=== PATIENT | female | born 1960 | race Caucasian/White ===

== ENCOUNTER 2018-05-15 08:54 | Outpatient (CLI) | payer BC | END 2018-05-15 08:55 | disposition home or self-care (01) | LOC: BICMAMMO 08:54 | PROVIDERS: ATTEND Internal Medicine | DX: Z12.31 Encounter for screening mammogram for malignant neoplasm of breast (principal) | CPT/HCPCS: 77063; 77067 ==

== ENCOUNTER 2018-06-15 17:25 | Inpatient (IN) | payer BC ==
[2018-06-15] MEDS ORDERED: Dexamethasone 10 MG/ML VIAL ONE (18:13)
[2018-06-15] MEDS ORDERED: Piperacillin/Tazobactam 4.5 GM VIAL ONE (18:13)
[2018-06-15] MEDS ORDERED: Acyclovir Sodium 900 MG in Sodium Chloride 0.9% 100 ML IVPB SCH (18:15)
[2018-06-15 18:16] LABS: #Lymphocytes 0.6 thou/uL (1.20-3.40); #Monocytes 0.5 thou/uL (0.11-0.59); #Neutrophils 10.8 thou/uL (1.40-6.50); %Basophils 0.3 % (0.0-1.0); %Eosinophils 0.2 % (0.0-10.0); %Monocytes 4.2 % (0.0-10.0); %Neutrophils 90.3 % (42.0-75.0); Hemoglobin 14.8 g/dL (12.0-16.0); Mean Corpuscular HGB CONC 32.8 g/dL (32.0-36.0); Mean Corpuscular Hemoglobin 31.7 pg (27.0-31.0); Mean Corpuscular Volume 96.6 fL (78.0-98.0); Mean Platelet Volume 7.9 fL (7.4-10.4); Platelet Count 207 thou/uL (130-400); RBC Distribution Width 12.3 % (11.5-14.5); Red Blood Cell (RBC) Count 4.65 mill/uL (4.20-5.40)
--- NOTE | 2018-06-15 18:31 | RAD ---
AP VIEW CHEST: 06/15/2018 HISTORY: Fever. COMPARISON: 02/23/2014 FINDINGS: AP view chest demonstrates suboptimal inspiratory effort. Areas of patchy density seen in the left costophrenic angle. This may represent areas of left lower lobe pneumonia. Correlate with PA and lateral views of the chest to better evaluate the left lung ba se. IMPRESSION: Area of pneumonia versus artifact in the left lung base. Correlate with Vinod posterior-anterior views of the chest. POS: [facility]
--- NOTE | 2018-06-15 18:33 | CT ---
CT BRAIN: HISTORY: Altered mental status. TECHNIQUE: Noncontrast enhanced CT images of the brain obtained. FINDINGS: The brain is unremarkable. No evidence of intracranial masses, hemorrhages, strokes, or contusions s een. Ventricles are of normal size. IMPRESSION: Normal CT brain. POS: [facility]
[2018-06-15 18:37] LABS: ALT (SGPT) 13 U/L (8-55); AST (SGOT) 31 U/L (5-34); Albumin 3.9 g/dL (3.5-5.0); Alkaline Phosphatase 76 U/L (40-150); Anion Gap 16 mmol/L (10-20); BUN (Urea Nitrogen) 14 mg/dL (9.8-20.1); Bilirubin, Total 0.3 mg/dL (0.2-1.2); CK (CPK) 74 U/L (29-168); Calc. Creatinine Clearance 0 mL/min (70-130); Calcium 8.9 mg/dL (7.8-10.44); Carbon Dioxide 21 mmol/L (22-29); Chloride 101 mmol/L (98-107); Estimated GFR-MDRD 79; Globulin 3.4 g/dL (2.4-3.5); Glucose 120 mg/dL (70-105); Lipase 36 U/L (8-78); Potassium 3.8 mmol/L (3.5-5.1); Protein, Total 7.3 g/dL (6.0-8.3); Sodium 134 mmol/L (136-145)
[2018-06-15] MEDS ORDERED: Oseltamivir 75 MG CAP PO SCH (18:45)
[2018-06-15 18:47] LABS: Acetaminophen Less than 6.0 mcg/mL (10.0-30.0); Alcohol Less than 10 mg/dL (Less than 10); Salicylate Less than 8.0 mg/dL (15.0-30.0)
[2018-06-15] MEDS ORDERED: Lorazepam 2 MG/ML VIAL ONE (19:09)
[2018-06-15] MEDS ORDERED: Lidocaine 1% PF 5 ML VIAL ONE (19:16)
[2018-06-15 19:52] LABS: Color Of CSF Supernatant COLORLESS (Colorless); Tube # 2; Unspun CSF Color COLORLESS (Colorless)
[2018-06-15 20:04] LABS: CSF, Glucose 73 mg/dl (40-70); CSF, Protein 28 mg/dL (15-40)
[2018-06-15 20:25] LABS: CSF Source CSF; Clarity Clear (Clear); RBC Count - Manual 19 /cumm (None Seen); Tube # 1; WBC/NonHematics Count - Manual 1 /cumm (0-5)
[2018-06-15 20:34] LABS: CSF Source CSF; Clarity Hazy (Clear); RBC Count - Manual 2100 /cumm (None Seen); Tube # 4; WBC/NonHematics Count - Manual 4 /cumm (0-5)
[2018-06-15] MEDS ORDERED: Acetaminophen 500 MG TAB ONE (20:47)
[2018-06-16 00:06] VITALS: BMI 26.1
[2018-06-16] MEDS: Sodium Chloride 0.9% 1,000 ML IV SCH ×3 (01:21→17:33)
[2018-06-16] MEDS: Acetaminophen/Codeine 30-300mg Tablet PO PRN (01:22)
--- NOTE | 2018-06-16 02:55 | HP ---
PRIMARY CARE DOCTOR: Dr. Jignesh Simmons. CODE STATUS: Full code. TIME OF EVALUATION: 9:40 p.m. CHIEF COMPLAINT: Fever, change in mental status, and fatigue. HISTORY OF PRESENT ILLNESS: 58-year-old female patient with past medical cardiac history of heart disease, mitral valve prolapse, Landon's palsy, came to the hospital after having an episode of fatigue, associated with headache, photophobia, hypotension, nausea, vomiting. Symptoms have been present since Friday and gradually worsened, not getting better. As per , the patient has been only willing to sleep at home. The patient saw Dr. Hutson and the patient had a positive flu test and she was sent here. Has no clear triggers, symptoms are severe. No alleviating factors. The patient seems lethargic with a slow mentation. REVIEW OF SYSTEMS: CONSTITUTIONAL: The patient denies fever, chills, generalized weakness. RESPIRATORY: No cough, sputum production, shortness of breath. CARDIOVASCULAR: No chest pain or palpitations. GASTROINTESTINAL: The patient has nausea, vomiting. No diarrhea or abdominal pain. SWITCH FOREMAN: The patient is lethargic, somnolent. She has headache, photophobia. GENITOURINARY: No burning on urination. EXTREMITIES: No leg swelling. All other systems were reviewed and negative except for the findings mentioned above. PAST MEDICAL HISTORY: As mentioned in the HPI. SURGICAL HISTORY: Hysterectomy. SOCIAL HISTORY: No alcohol, no drugs. No smoking history. FAMILY HISTORY: Reviewed and noncontributory to current presentation. ALLERGIES: NO KNOWN DRUG ALLERGIES REPORTED. MEDICATIONS: None. PHYSICAL EXAMINATION: VITAL SIGNS: On presentation, blood pressure 112/73 with heart rate 116, respiratory rate was 12, temperature 103, pain was 8/10, and oxygen saturation was 91% on room air. GENERAL APPEARANCE: The patient is alert, but lethargic, oriented, but with slow mentation. No acute distress. HEENT: Eyes, normal conjunctiva. Moist oral mucosa. Anicteric. No JVD. RESPIRATORY: Bilateral air entry. No rales. No wheezing. Symmetric expansion. CARDIOVASCULAR: Normal rate, regular rhythm. No murmurs, no gallops. No edema. ABDOMEN: Soft. Normal bowel sounds. MUSCULOSKELETAL: Baseline range of motion. No sternal tenderness. SKIN: Warm, intact. No pallor. No rash. No redness. Peripheral pulses are present. Capillary refill seems to be intact. NEUROLOGIC: The patient has some photophobia. No focal weakness. Baseline speech. Slow mentation. Cranial nerves seem to be intact. PSYCHIATRIC: The patient is in good mood. No anxiety. Slow mentation. Suboptimal judgment. DIAGNOSTIC STUDIES: EKG was reviewed. The patient has sinus tachycardia at a rate of 109 with WA 118, QRS 90, QT corrected 412. Chest x-ray was reviewed. The patient had pneumonia versus artifact in the left lung base. Brain CT was done and showed normal brain CT. LABORATORY DATA: Labs were reviewed. White count 12, hemoglobin 14.8, MCV 96.6 , platelet count 207, neutrophil 90.3, lymphocytes 5. Chemistry; sodium 134, potassium 3.8, chloride 101, carbon dioxide 21, anion gap 16, BUN 14, creatinine 0.76, GFR 79, glucose 120, lactic acid 0.9, calcium is 8.9. LFTs were normal. Troponin was normal. TSH 0.14. CSF fluid was obtained. The patient had rbc's 19, cells were normal. Glucose was 73. Toxicology was negative. ASSESSMENT AND PLAN: The patient will be placed in the hospital with following medical problems: 1. Possible acute encephalitis/meningitis due to a viral infection. At this point, it is difficult to rule out any bacterial infection. The patient is being covered with broad-spectrum antibiotics and also antiviral, we will consult Dr. Mcadams for any further recommendations. Cultures been sent. Expect to have final cultures from CSF to make any change in medications unless otherwise specified by Dr. Mcadams. 2. Acute encephalopathy, seems to be of infectious etiology. The patient has been with fever and septic, treatment as above. 3. Sepsis. The patient is tachycardic and febrile. Possible source is SWITCH FOREMAN. We will continue with medication started above. 4. Borderline hypotension. Patient usually has low blood pressure in the 90s at home, unclear if this is related to underlying sepsis. We will monitor in IMCU, will hydrate and will adjust treatment depending on patient's clinical progress. 5. Hyperglycemia. Glucose 120, unclear etiology. No history of diabetes. Might be due to acute distress or sepsis. We will monitor. No need for any acute intervention at this point. 6. Hyponatremia, sodium 134, this is mild. No need for any acute intervention at this point. 7. Deep venous thrombosis prophylaxis. Job ID: [id number] [email or web address]
[2018-06-16] MEDS ORDERED: cefTRIAXone\\ROCEPHIN 2 GM in Sodium Chloride 0.9% 100 ML IVPB SCH (03:15)
[2018-06-16] MEDS ORDERED: Sodium Chloride 0.9% 1,000 ML IV SCH (03:30)
[2018-06-16 03:54] LABS: Bilirubin Negative (Negative); Blood, Urine Negative (Negative); Clarity CLEAR (Clear); Glucose, Urine (Dipstick) 100 mg/dL (Negative); Leukocyte Negative (Negative); Nitrite Negative (Negative); Protein, Urine (Dipstick) Negative (Neg-Trace); Specific Gravity, Urine 1.015 (1.002-1.036); Urobilinogen 0.2 mg/dL (0.2-1.0); pH, Urine 5.5 (5.0-9.0)
[2018-06-16 03:56] LABS: Bacteria/HPF None Seen HPF (None Seen); Hyaline Casts/LPF 0-3 HYALINE CAST LPF (0-3 Hyaline); Pathc Cast-AUWi Flag 0.43 (0-2.49); Squamous Epithelial 0-3 HPF (0-3)
[2018-06-16 04:14] LABS: Urine Culture Reflex Yes Yes
[2018-06-16] MEDS: Vancomycin HCl 1.25 GM in Sodium Chloride 0.9% 250 ML 250 ML IVPB SCH ×2 (04:51→17:38)
[2018-06-16 06:05] LABS: Lactic Acid 1.1 mmol/L (0.5-2.2)
[2018-06-16] MEDS: Acyclovir Sodium 650 MG in Sodium Chloride 0.9% 100 ML IVPB SCH ×2 (06:16→15:00)
[2018-06-16] MEDS ORDERED: Cosyntropin 250 MCG VIAL SLOW IVP SCH (07:30)
[2018-06-16] MEDS ORDERED: Sodium Chloride 0.9% 500 ML IV SCH (09:15)
[2018-06-16] MEDS: Oseltamivir 75 MG CAP PO SCH ×2 (09:43→21:25)
--- NOTE | 2018-06-16 10:08 | PDOC.PN ---
- Subjective Encounter Start Date: 06/16/18 Encounter Start Time: 10:06 Ms. Morejon was seen today in follow-up of hypotension, and generally not feeling well. She was recently diagnosed with the flu. She says she continues to have some headache, and feels weak. She also had noted some pains in her chest, like a squeezing, at night off and on for the past few days. She has a history of MVP, and had planned to see Dr. Soto today because she thought " something may be wrong". - Objective MAR Reviewed: Yes Vital Signs & Weight: Vital Signs (12 hours) Temp Pulse Ox 06/16/18 07:45 100 06/16/18 07:23 96.8 F L 06/16/18 04:14 97.7 F 06/16/18 00:00 98 06/15/18 23:41 97.9 F Weight Weight 172 lb Most Recent Monitor Data Heart Rate from ECG 58 NIBP 89/61 NIBP BP-Mean 70 Respiration from ECG 18 SpO2 100 I&O: 06/15/18 06/16/18 06/17/18 06:59 06:59 06:59 Intake Total 1256 Output Total 300 Balance 956 Result Diagrams: 06/15/18 17:55 06/15/18 17:55 Phys Exam - Physical Examination HEENT: PERRLA Respiratory: no wheezing, no rales, no rhonchi, clear to auscultation bilateral Cardiovascular: RRR, no significant murmur, no rub Gastrointestinal: soft, positive bowel sounds + Mild RUQ tenderness, no rebound or guarding Musculoskeletal: no edema Dx/Plan (1) Pre-syncope Status: Acute (2) Generalized weakness Code(s): R53.1 - WEAKNESS Status: Acute (3) Influenza A Code(s): J10.1 - FLU DUE TO OTH IDENT INFLUENZA VIRUS W OTH RESP MANIFEST Status: Acute (4) Mitral valve prolapse Code(s): I34.1 - NONRHEUMATIC MITRAL (VALVE) PROLAPSE Status: Acute (5) Hypotension Status: Acute - Plan * Hypotension- I suspect this may be due to volume depletion. She seems to be responding to fluids ow. Will check a Cortrosyn Stem test in the AM * Chest pain- ? etiology- I do not suspect it is related to the current illness - will check an Echo and consult Cardiology * RUQ pain- mild- but will check an abdominal Ultrasound ( recent history of severe reflux symptoms) * Influenza A- Continue Tamiflu.
[2018-06-16] MEDS: cefTRIAXone\\ROCEPHIN 2 GM in Sodium Chloride 0.9% 100 ML IVPB SCH (15:00)
--- NOTE | 2018-06-16 16:52 | ULT ---
SONOGRAM ABDOMEN COMPLETE 06/16/18 HISTORY: Upper abdominal pain. FINDINGS: Gallbladder has a normal appearance. No evidence of stones. Common duct is 0.3 cm. Liver unremarkable without focal mass or intrahepatic biliary dilatation. Cysts are the inferior pole of the left kidney measures 1.2 cm. The spleen, right kidney, and visualized portions of the abdominal aorta, IVC, and pancreas have a normal sonographic appearance. Small amount of right pleural fluid is partially visualized. IMPRESSION: No evidence of gallstones or biliary obstruction. Small amount of right pleural fluid. POS: [facility]
--- NOTE | 2018-06-16 16:58 | PRG ---
DATE OF SERVICE: 06/16/2018 SUBJECTIVE: Ms. 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 She says she had been around 3 different people in the office that had the flu. She has had nausea, vomiting, and diarrhea illness for 3 days leading up to this admission and then yesterday went into Dr. Hutson's office and looked "barriga" and quite ill and then subsequently was transferred here. She says she is feeling a little better. PAST MEDICAL HISTORY: Remarkable for Landon's palsy in the past and mitral valve prolapse. SOCIAL HISTORY: She is nonsmoker, nondrinker, nondrug user. FAMILY HISTORY: Negative for lung disease in early age. REVIEW OF SYSTEMS: 10 point review of systems completed, otherwise negative. ALLERGIES: SHE HAS NO REPORTED DRUG ALLERGIES. PHYSICAL EXAMINATION: GENERAL: She is in no distress. She is no longer nauseated. VITAL SIGNS: She is afebrile. Heart rate is in the 60s, blood pressure is respiratory rate is in the teens. HEENT: Pupils are equal. Sclerae are anicteric. NECK: Supple. No lymphadenopathy. LUNGS: Clear. HEART: Regular rhythm. S1 and S2 are normal. ABDOMEN: Soft and nontender. EXTREMITIES: Without clubbing, cyanosis, or edema. IMPRESSION: Influenza. She had a lumbar puncture, which was on tube #4 acellular with one white cell, 19 red cells, 73 glucose, and 28 protein. Unlikely, this is a bacterial process in my opinion. Head CT showed no structural abnormalities, this is a noncontrast head CT. Chest radiograph showed no alveolar infiltrates. She probably needs more hydration. Chest radiograph did not show anything that looks like pneumonia and she certainly does not have a history suggestive of pneumonia at this time. Remainder of her labs are unremarkable. I would be happy to follow with the other physicians caring for. This is a 70 minute consult, with greater than 50% of time on unit coordinating care. Job ID: [id number] MTDD
--- NOTE | 2018-06-16 16:59 | EKG ---
Test Reason : C/O CHEST PAIN Blood Pressure : / mmHG Vent. Rate : 066 BPM Atrial Rate : 066 BPM P-R Int : 142 ms QRS Dur : 086 ms QT Int : 420 ms P-R-T Axes : 069 044 042 degrees QTc Int : 440 ms Normal sinus rhythm Low voltage QRS Borderline ECG When compared with ECG of 15-JUN-2018 18:00, (Unconfirmed) Vent. rate has decreased BY [address] Brenda VEGA ([id number]) on 06/16/2018 4:58:32 PM Referred By: OMAR Confirmed By:DR. Brenda VEGA
--- NOTE | 2018-06-16 18:20 | CON ---
DATE OF CONSULTATION: 06/16/2018 REASON FOR CONSULTATION: Chest pain. HISTORY OF PRESENT ILLNESS: Ms. Morejon is a pleasant 58-year-old white female, who comes to the hospital for not feeling well. She was diagnosed with influenza recently and is struggling to get through this. The reason Cardiology is being consulted is because in the last 6 months, she has noticed a chest tightness in the midsternal area. This happens at night when she lays down on her back. She feels a grabbing pain in the midsternal area that lasted for about 20 to 30 minutes. She gets this sensation of diaphoresis and eventually everything calms down and she is able to fall asleep. This has been happening more readily in the last few months, but has been happening for 6 months now. This has not really changed since she had the influenza is not an active issue. Currently, she denies any chest pain. She has had negative troponins so far. PAST MEDICAL HISTORY: 1. Mitral valve prolapse, followed by Cardiology in [place] for several years now. 2. 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 3. GERD with esophagitis. PAST SURGICAL HISTORY: Hysterectomy. EGD and colonoscopy recently a few weeks ago showing hiatal hernia and what appeared to be esophagitis. SOCIAL HISTORY: No alcohol, tobacco, or drugs. FAMILY HISTORY: Noncontributory. OUTPATIENT MEDICATIONS: Include pantoprazole 40 mg p.o. b.i.d. ALLERGIES: NO KNOWN DRUG ALLERGIES. REVIEW OF SYSTEMS: A 12-point review of systems was done and it was all negative unless stated in the history of present illness. PHYSICAL EXAMINATION: VITAL SIGNS: Temperature 97.7, pulse 64, respiratory rate 23, saturating 96% on room air, and blood pressure 92/62. GENERAL: Awake, alert, and oriented x3. No distress. HEENT: Normocephalic and atraumatic. NECK: Supple. LUNGS: Clear. CARDIOVASCULAR: S1 and S2. No S3 or S4. No murmurs. ABDOMEN: Soft. Positive bowel sounds. EXTREMITIES: No edema. SKIN: Warm and dry. LABORATORY DATA: Laboratory work was reviewed. CBC with a white count of 12, hemoglobin 14, hematocrit 45, platelet count 207. Chemistry unremarkable except for a sodium 134, glucose was 120. Lactic acid was 0.9, albumin of 3.9. Normal LFTs. TSH was 0.14, low, but normal free T4. Lipase was normal. UA with 100 glucose, trace ketones, 4 to 6 white cells. Toxicology was unremarkable. DIAGNOSTIC DATA: Abdominal ultrasound for right upper quadrant pain showed no evidence of gallstones, small amount of right pleural fluid. ASSESSMENT: 1. Influenza. Per primary team. 2. Chest pain. 3. Mitral valve prolapse. PLAN: 1. Her chest pain has sometimes been ongoing for the last 6 months. More than likely, this is a chronic issue that will be addressed later as an outpatient. Currently, we will get an echocardiogram to assess LV function, valvular structures. I suspect with level of MR, she may have from her mitral valve prolapse. If this is not too concerning, we will continue risk stratification as an outpatient once she is over her influenza. 2. Further recommendations results of echocardiogram. Job ID: [id number]
--- NOTE | 2018-06-16 23:57 | CON ---
DATE OF CONSULTATION: 06/16/2018 REASON FOR CONSULTATION: Influenza infection. HISTORY OF PRESENT ILLNESS: This is a 58-year-old with history of mitral valve prolapse, Landon palsy, admitted with photophobia, headaches, vomiting, cough, was seen by her doctor, and influenza test was positive, she was admitted. Initial findings, BP 112/73, heart rate 116, temperature 103, and O2 saturation 91%. She was lethargic. Lungs with bilateral breath sounds, which were symmetric, but no wheezing or crackles. The abdomen is soft and nontender. She moves all extremities equally. White cell count 12,000, hemoglobin 14, platelets 207,000, and 90% neutrophils. Creatinine 0.76. She had a CSF evaluation because of concern with her mental status, which showed 1 wbc's with 19 rbc's, probably from contamination by blood from vessels in the plexus around the subarachnoidal area. Currently, Ms. Morejon is much more alert, oriented, follows commands. Denies headaches. No visual symptoms, sore throat, odynophagia or dysphagia. Little bit of cough. No chest pain. Mild dyspnea noted. No abdominal pain or diarrhea. No genitourinary symptoms. PAST MEDICAL HISTORY: Landon palsy and mitral valve prolapse. PAST SURGICAL HISTORY: Hysterectomy. SOCIAL HISTORY: Never smoker. FAMILY HISTORY: Noncontributory. ALLERGIES: NONE. CURRENT MEDICATIONS: 1. Acyclovir. 2. Ceftriaxone. 3. Pantoprazole. 4. Vancomycin. 5. She is also on Tamiflu. PHYSICAL EXAMINATION: VITAL SIGNS: T-max 97.7, BP 92/62, pulse 64, respirations 23, and O2 saturation 96%. SKIN: Peripheral IV access. She is voiding naturally in the commode. HEENT: No lymphadenopathy. Ocular movements conjugate. Conjunctivae normal. Oral cavity normal. NECK: Supple. LUNGS: Symmetric air entry with scattered rhonchi. HEART: S1 and S2. Regular rate. ABDOMEN: Soft. Not distended or tender. No ascites. No bladder distention. EXTREMITIES: No joint inflammatory activity. NEUROLOGIC: Nonfocal including cognitive function. LABORATORY DATA: We do not have any followup labs. Microbiology with negative blood cultures thus far. ASSESSMENT: Influenza A with bronchitis. The CSF evaluation was normal. No evidence of primary COMMERCIAL INSTALLER infection. DISCUSSION: Influenza A can be associated sometimes with encephalitis, but I do not think her clinical and laboratory findings are consistent with encephalitis. Recommend discontinuation of acyclovir and vancomycin. She may have associated influenza pneumonia. We will continue Rocephin for the time being. She started her Tamiflu about 5 days into the course of her own illness. Therefore, the Tamiflu efficacy and reduction of the illness time course is less. Job ID: [id number]
[2018-06-17] MEDS: Sodium Chloride 0.9% 1,000 ML IV SCH ×3 (02:10→16:03)
[2018-06-17] MEDS: cefTRIAXone\\ROCEPHIN 2 GM in Sodium Chloride 0.9% 100 ML IVPB SCH ×2 (02:11→16:02)
[2018-06-17] MEDS: Oseltamivir 75 MG CAP PO SCH ×2 (08:16→21:23)
[2018-06-17] MEDS ORDERED: Zolpidem Tartrate 5 MG TAB PO PRN (09:19)
[2018-06-17] MEDS ORDERED: Benzonatate 100 MG CAP PO PRN (09:19)
[2018-06-17] MEDS ORDERED: Fioricet 325/50/40 mg Tablet PO PRN (09:19)
--- NOTE | 2018-06-17 09:25 | PDOC.PN ---
- Subjective Encounter Start Date: 06/17/18 Encounter Start Time: 09:21 Patient seen and examined, states she's light headed and also tired. States that her condition has been deteriorating over the past 12 months. at bedside, all questions answered. - Objective Vital Signs & Weight: Vital Signs (12 hours) Temp Pulse Ox 06/17/18 07:32 94 L 06/17/18 07:09 97.9 F 06/17/18 04:14 98.1 F 06/17/18 00:05 98.1 F Weight Weight 173 lb 8 oz Most Recent Monitor Data Heart Rate from ECG 73 NIBP 115/72 NIBP BP-Mean 86 Respiration from ECG 16 SpO2 99 I&O: 06/16/18 06/17/18 06/18/18 06:59 06:59 06:59 Intake Total 1256 4191 Output Total 300 500 500 Balance 956 3691 -500 Result Diagrams: 06/15/18 17:55 06/15/18 17:55 Phys Exam - Physical Examination mild discomfort HEENT: PERRLA, moist MMs, sclera anicteric Neck: no nodes, no JVD, supple, full ROM Respiratory: no wheezing, no rales, no rhonchi, wheezing present Cardiovascular: RRR, no rub 4/6 BRENDON Gastrointestinal: soft, non-tender, no distention, positive bowel sounds Musculoskeletal: pulses present, edema present (trace) Neurological: non-focal, normal sensation, moves all 4 limbs Dx/Plan (1) Generalized weakness Code(s): R53.1 - WEAKNESS Status: Acute (2) Hypotension Status: Acute (3) Influenza A Code(s): J10.1 - FLU DUE TO OTH IDENT INFLUENZA VIRUS W OTH RESP MANIFEST Status: Acute (4) Mitral valve prolapse Code(s): I34.1 - NONRHEUMATIC MITRAL (VALVE) PROLAPSE Status: Acute (5) Pre-syncope Status: Acute - Plan * Patient likely has all issues related to her mitral valve prolapse, will get ECHO to confirm severity, may need MANA for exact pressure numbers * will also check to see if patient has pulmonary HTN and elevated RSVP causing her hypotension and cough * continue tamiflu for now * adrenal test ordered earlier, will follow up with results, suspicion low given normal electrolytes but not unreasonable to rule out * echo will shine light on cardiac function as well as her BP, if mitral prolapse is severe she may need to have valve replacement, cardio following closely, defer to cardio * hypotension also likely causing her headache from cranial hypoperfusion, patient when she sits up in bed is lightheaded but when she lays flat feels better * will start her on guiafenacin + codein, tessalon perles, abmien and chloraseptic spray PRN * echo ordered and results pending * fiorecet for headache * case and plan d/w patient at length, at bedside, all questions answered.
[2018-06-17] MEDS ORDERED: Benzonatate 100 MG CAP PO SCH (12:00)
[2018-06-17] MEDS ORDERED: Naproxen 500 MG TAB PO SCH (12:30)
[2018-06-17] MEDS: guaiFENesin/Codeine Phosphate 200 mg/20 mg 10 ml UD Cup PO PRN ×2 (12:53→19:08)
--- NOTE | 2018-06-17 16:42 | PRG ---
DATE OF SERVICE: 06/17/2018 SUBJECTIVE: Mateo Morejon continues to not feel well, consistent with having influenza. OBJECTIVE: VITAL SIGNS: She is afebrile. Heart rates in the 60s, blood pressure is 90/60, and respiratory rate in the 20. GENERAL: She is in no distress. LUNGS: Unchanged. HEART: Unchanged. ABDOMEN: Unchanged. LABORATORY DATA: There is no new lab. Microbiologies reviewed. I do not see reported CSF cultures. I do see a negative urine culture and 2 blood cultures are negative at 48 hours. IMPRESSION AND PLAN: 1. Influenza. 2. Mitral valve prolapse. 3. History of reflux disease. 4. Chest discomfort, being followed by Cardiology. Echocardiogram shows a normal ventricle, mild to moderate mitral regurgitation. She did have elevation of her right heart pressures surprisingly. There is no mention of diastolic dysfunction on the echo. This could be entirely related to mitral regurgitation. 5. Since she is achy, I will put her on Naprosyn twice a day. I have put her on around the clock scheduled to Noris Sellers. I think she is close to being stable enough for discharge. Job ID: [id number]
--- NOTE | 2018-06-17 17:12 | PDOC.CTH ---
Cardiology Progress Note - Subjective She is feeling better. Cough is still her biggest problem to the point he could not sleep last night due to coughing fits. No chest pain. - Objective Vital Signs Temp Pulse Ox 06/17/18 15:31 97.6 F 06/17/18 11:50 98.6 F 06/17/18 07:32 94 L 06/17/18 07:09 97.9 F Weight 173 lb 8 oz 06/16/18 06/17/18 06/18/18 06:59 06:59 06:59 Intake Total 1256 4191 Output Total 068 791 1296 Balance 956 3691 -1600 - Physical Examination General/Neuro: alert & oriented x3, NAD Neck: no JVD present Lungs: CTA, unlabored respirations Heart: RRR Abdomen: NT/ND Extremities: other: (no edema.) - Telemetry Telemetry Rhythm: NSR - Labs Result Diagrams: 06/15/18 17:55 06/15/18 17:55 Troponin/CKMB Troponin I Less than 0.010 ng/mL (< 0.028) 06/16/18 14:52 - Assessment/Plan 1. Influenza 2. Possible pneumonia 3. Chest pain PLAN: - Echo pending today. - Will risk stratify as an outpatient once out of her acute influenza infection. - Will need to see her in 1 month after discharge.
[2018-06-17] MEDS ORDERED: Amiodarone 150 MG, Admixture Fee 1 EACH in Dextrose 5% in Water 100 ML IVPB SCH (19:45)
[2018-06-17] MEDS ORDERED: Amiodarone 450 MG, Admixture Fee 1 EACH in Dextrose 5% in Water 250 ML IVPB SCH (19:45)
[2018-06-17] MEDS: Naproxen 500 MG TAB PO SCH (21:23)
[2018-06-17] MEDS: Acetaminophen/Codeine 30-300mg Tablet PO PRN (22:33)
[2018-06-18] MEDS: Sodium Chloride 0.9% 1,000 ML IV SCH ×4 (01:00→23:25)
[2018-06-18] MEDS: cefTRIAXone\\ROCEPHIN 2 GM in Sodium Chloride 0.9% 100 ML IVPB SCH ×2 (03:31→15:52)
[2018-06-18 04:48] LABS: #Lymphocytes 2.2 thou/uL (1.20-3.40); #Monocytes 0.9 thou/uL (0.11-0.59); #Neutrophils 8.1 thou/uL (1.40-6.50); %Basophils 0.2 % (0.0-1.0); %Lymphocytes 19.3 % (21.0-51.0); %Monocytes 7.9 % (0.0-10.0); %Neutrophils 72.5 % (42.0-75.0); Hemoglobin 11.6 g/dL (12.0-16.0); Mean Corpuscular HGB CONC 32.6 g/dL (32.0-36.0); Mean Corpuscular Hemoglobin 31.7 pg (27.0-31.0); Mean Corpuscular Volume 97.1 fL (78.0-98.0); Mean Platelet Volume 8.2 fL (7.4-10.4); Platelet Count 169 thou/uL (130-400); RBC Distribution Width 12.6 % (11.5-14.5); Red Blood Cell (RBC) Count 3.66 mill/uL (4.20-5.40); White Blood Cell (WBC) Count 11.2 thou/uL (4.8-10.8)
[2018-06-18 05:12] LABS: ALT (SGPT) 12 U/L (8-55); AST (SGOT) 25 U/L (5-34); Albumin 2.9 g/dL (3.5-5.0); Alkaline Phosphatase 55 U/L (40-150); Anion Gap 12 mmol/L (10-20); BUN (Urea Nitrogen) 9 mg/dL (9.8-20.1); Bilirubin, Total 0.2 mg/dL (0.2-1.2); Calc. Creatinine Clearance 135 mL/min (70-130); Calcium 7.7 mg/dL (7.8-10.44); Carbon Dioxide 21 mmol/L (22-29); Chloride 113 mmol/L (98-107); Estimated GFR-MDRD Greater than 90; Globulin 2.4 g/dL (2.4-3.5); Glucose 108 mg/dL (70-105); Protein, Total 5.3 g/dL (6.0-8.3); Sodium 143 mmol/L (136-145)
--- NOTE | 2018-06-18 08:42 | PRG ---
DATE OF SERVICE: 06/18/2018 SUBJECTIVE: Mateo Morejon this morning is awake, alert, responsive. She went into rapid SVT last night, it has been controlled with Cardizem and she is better this morning. Heart rate is 56, potassium is 3, albumin is 2.9. She is still having some headaches, still got a cough. OBJECTIVE: VITAL SIGNS: Sats are 96% on room air, pulse is 56, blood pressure 101/70. CHEST: Decreased breath sounds. No wheezing. CARDIAC: Normal S1, S2. No gallops. ABDOMEN: No masses. LABORATORY DATA: Unremarkable. White count 11,000, platelet count is normal. IMPRESSION: 1. Left-sided pneumonia. 2. Influenza A. 3. Supraventricular tachycardia. 4. Headache. 5. Cough. I have added Dulera to her present treatment. She has p.r.n. cough syrup, supportive care. If cough did not resolve, I am going to give her brief course of prednisone. Otherwise, she can be transferred to a monitored bed. Job ID: [id number]
[2018-06-18] MEDS: Naproxen 500 MG TAB PO SCH ×2 (08:57→20:11)
[2018-06-18] MEDS: Oseltamivir 75 MG CAP PO SCH ×2 (08:58→20:12)
--- NOTE | 2018-06-18 09:47 | RAD ---
CHEST ONE VIEW: History: Follow up pneumonia. Comparison: 06-15-18 FINDINGS: The increased markings in the left costophrenic angle seen on the prior study have improved although there are some new patchy parenchymal changes in the right midlung zone, worrisome for developing pne umonia or pneumonitis. The heart size is within normal limits. New patchy parenchymal changes right midlung zone. Improvement in the left costophrenic angle bluntin g. IMPRESSION: New parenchymal changes right midlung zone, worrisome for developing pneumonia. Continue short term f ollow up for clearing. POS: [facility]
--- NOTE | 2018-06-18 10:04 | PDOC.PN ---
- Subjective Encounter Start Date: 06/18/18 Encounter Start Time: 11:20 Subjective: Patient with some SIMS this AM. Tylenol with codeine caused nausea last -: night. Weak with walking but getting up to bedside commode by herself. - Objective MAR Reviewed: Yes Vital Signs & Weight: Vital Signs (12 hours) Temp 06/18/18 09:59 97.7 F 06/18/18 03:53 97.9 F 06/18/18 00:00 99.6 F Weight Weight 176 lb 3 oz Most Recent Monitor Data Heart Rate from ECG 72 NIBP 96/66 NIBP BP-Mean 76 Respiration from ECG 25 SpO2 96 I&O: 06/17/18 06/18/18 06/19/18 06:59 06:59 06:59 Intake Total 4191 4772.5 Output Total 500 2200 Balance 3691 2572.5 Result Diagrams: 06/18/18 04:29 06/18/18 04:29 Phys Exam - Physical Examination Constitutional: NAD HEENT: moist MMs Respiratory: no wheezing, no rales, no rhonchi Cardiovascular: RRR Gastrointestinal: soft, positive bowel sounds Neurological: non-focal, moves all 4 limbs Psychiatric: normal affect, A&O x 3 Dx/Plan (1) Influenza A Code(s): J10.1 - FLU DUE TO OTH IDENT INFLUENZA VIRUS W OTH RESP MANIFEST Status: Acute Comment: On Tamiflu, afebrile (2) Pneumonia Code(s): J18.9 - PNEUMONIA, UNSPECIFIED ORGANISM Status: Acute Qualifiers: Laterality: left Lung location: lower lobe of lung Comment: on Rocephin, O2 sats fine (3) Atrial fibrillation with RVR Code(s): I48.91 - UNSPECIFIED ATRIAL FIBRILLATION Status: Acute Comment: resolved with amiodarone last night, drip d/c'd (4) Hypotension Status: Acute (5) Generalized weakness Code(s): R53.1 - WEAKNESS Status: Chronic (6) Mitral valve prolapse Code(s): I34.1 - NONRHEUMATIC MITRAL (VALVE) PROLAPSE Status: Chronic - Plan cont current plan of care, continue antibiotics, PT/OT, respiratory therapy, DVT proph w/lovenox, DVT proph w/SCDs * . - Discharge Day Encounter end time: 11:30 Pulmonology Consult: Meds - Medications MAR Reviewed: Yes Medications: Current Medications Acetaminophen/Butalbital/Caffeine (Fioricet) 1 tab PO Q4H PRN PRN Reason: Headache Stop: 06/22/18 09:20 Last Admin: 06/17/18 12:43 Dose: 1 tab Acetaminophen/Codeine Phosphate (Tylenol #3) 1 tab PO Q4H PRN PRN Reason: Moderate Pain (4-6) Last Admin: 06/17/18 22:33 Dose: 1 tab Benzonatate (Tessalon) 200 mg PO TIDPRN [facility] Cosyntropin (Cortrosyn) 250 mcg SLOW IVP WILLCALL [facility] Last Admin: 06/17/18 03:40 Dose: 250 mcg Guaifenesin/Codeine Phosphate (Robitussin Ac) 10 ml PO Q6H PRN PRN Reason: Cough Last Admin: 06/17/18 19:08 Dose: 10 ml Ceftriaxone Sodium 2 gm/ (Sodium Chloride) 100 mls @ 200 mls/hr IVPB 0300,1500 [facility] Last Admin: 06/18/18 03:31 Dose: 100 mls Sodium Chloride (Normal Saline 0.9%) 1,000 mls @ 125 mls/hr IV .Q8H [facility] Last Admin: 06/18/18 09:14 Dose: 1,000 mls Amiodarone HCl 450 mg/Miscellaneous Medication 1 each/ Dextrose/Water 259 mls @ 0 mls/hr IVPB INF SHERIDAN; Protocol Last Admin: 06/17/18 20:20 Dose: 259 mls Mometasone Furoate/Formoterol Fumar (Dulera 200 Mcg/5 Mcg Inhaler) 1 puff INH BID-RT [facility] Naproxen (Naprosyn) 500 mg PO BID [facility] Last Admin: 06/18/18 08:57 Dose: 500 mg Oseltamivir Phosphate (Tamiflu) 75 mg PO BID [facility] Stop: 06/20/18 21:01 Last Admin: 06/18/18 08:58 Dose: 75 mg Pantoprazole Sodium (Protonix) 40 mg PO DAILY [facility] Last Admin: 06/18/18 08:58 Dose: 40 mg Sodium Chloride (Flush - Normal Saline) 10 ml IVF Q12HR [facility] Last Admin: 06/18/18 08:58 Dose: 10 ml Sodium Chloride (Flush - Normal Saline) 10 ml IVF PRN PRN PRN Reason: Saline Flush Zolpidem Tartrate (Ambien) 5 mg PO HSPRN PRN PRN Reason: Insomnia - Allergies Allergies/Adverse Reactions: Allergies Allergy/AdvReac Type Severity Reaction Status Date / Time No Known Allergies Allergy Verified 06/16/18 00:05
[2018-06-18] MEDS ORDERED: Potassium Chloride 20 MEQ TAB PO SCH ×2 (10:15→18:00)
[2018-06-18] MEDS ORDERED: Ondansetron ODT 4 MG TAB PO PRN (11:26)
[2018-06-18] MEDS ORDERED: Ondansetron PF 4 MG/2 ML Vial IVP PRN (11:26)
[2018-06-18] MEDS ORDERED: Acetaminophen 500 MG TAB PO PRN (11:34)
[2018-06-18] MEDS ORDERED: Bisacodyl 5 MG TAB PO PRN (16:23)
[2018-06-18] MEDS ORDERED: Docusate 100 MG CAP PO SCH (16:30)
--- NOTE | 2018-06-18 16:53 | PRG ---
DATE OF SERVICE: 06/18/2018 SUBJECTIVE: The patient has been able to walk quite a few steps. She is still a bit dyspneic. Developed atrial fibrillation overnight and was treated with diltiazem and amiodarone. A little bit of cough. OBJECTIVE: VITAL SIGNS: Showed normal temperature, T-max 99.6, BP 104/70, pulse 64, appears in no distress. HEENT: Ocular movements conjugate. LUNGS: With a few crackles here and there. No wheezing. HEART: S1 and S2. Regular rate. No S3 or S4. ABDOMEN: Soft. Not distended or tender. No ascites. No bladder distention. EXTREMITIES: Moves extremities equally. LABORATORY DATA AND DIAGNOSTIC STUDIES: White cell count 11.2, hemoglobin 11.6. Creatinine 0.58, potassium 3.0, and Microbiology with no growth in urine culture. Two sets of blood culture no growth. Chest x-ray with new parenchymal changes right mid lung zone. She is currently on Rocephin and doxycycline for possible additional bacterial pneumonia. Overall, she is steadily improving. ASSESSMENT: Influenza A infection with possible superimposed bacterial pneumonia, had transient atrial fibrillation, and is finishing course of oseltamivir. Job ID: [id number]
--- NOTE | 2018-06-18 17:18 | PDOC.CTH ---
Cardiology Progress Note - Subjective She had a brief episode of afib last night. Self limited. She had an amiodarone drip started and was discontinued a few hours after starting it as she was back in sinus. - Objective Vital Signs Temp 06/18/18 11:07 97.6 F 06/18/18 09:59 97.7 F Weight 176 lb 3 oz 06/17/18 06/18/18 06/19/18 06:59 06:59 06:59 Intake Total 4191 4772.5 Output Total 500 2200 Balance 3691 2572.5 - Physical Examination General/Neuro: alert & oriented x3, NAD Neck: no JVD present Lungs: CTA, unlabored respirations Heart: RRR Abdomen: NT/ND Extremities: other: (no edema) - Telemetry Telemetry Rhythm: NSR - Labs Result Diagrams: 06/18/18 04:29 06/18/18 04:29 Troponin/CKMB Troponin I Less than 0.010 ng/mL (< 0.028) 06/16/18 14:52 - Assessment/Plan 1. Influenza 2. Possible pneumonia 3. Chest pain. 4. Paroxysmal afib 5. Hypokalemia PLAN: - Mild MR on echo. - Will risk stratify as an outpatient once out of her acute influenza infection. - She has been noticing these episodes of palpitations for a few months now at night that correlated with last night episodes of afib. 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 - Will plan on full anticoagulation in the next few weeks, for now only an aspirin as she had hemoptysis and nose bleed yesterday. - Cannot add an AV jonathan blocking agent at this time as her resting HR is in the mid 50's. - Replace K. Will give an extra doise of 40 meq once. - Will follow.
--- NOTE | 2018-06-18 17:41 | PQF ---
CLINICAL DOCUMENTATION IMPROVEMENT CLARIFICATION FORM: ICD-10 Updated PLEASE DO AN ADDENDUM TO THE PROGRESS NOTE WITH ANY DOCUMENTATION UPDATES OR ADDITIONS AND CARRY THROUGH TO DC SUMMARY. THANK YOU. DATE: 06/18/2018 ATTN: Dr. Mckeon Please exercise your independent, professional judgment in responding to the clarification form. Clinical indicators are provided on the bottom of this form for your review Please check appropriate box(s) to clarify if the following diagnosis has been ruled in or ruled out: SEPSIS [ X ] Ruled in diagnosis [ ] Continue to treat [ X ] Resolved [ ] Ruled out diagnosis [ ] Cannot rule out diagnosis [ ] Other diagnosis [ ] Unable to determine In addition, please specify: Present on Admission (POA): [ X ] Yes [ ] No [ ] Unable to determine For continuity of documentation, please document condition throughout progress notes and discharge summary. Thank You. CLINICAL INDICATORS - SIGNS / SYMPTOMS / LABS H&P 2/: BP 112/73 HR 116 Temp. 103 Oxygen sat 91% on room air White count 12 Acute encephalopathy, seems to be of infectious etiology. Sepsis PN 2 (Sidney): I do see a negative urine culture and 2 blood cx's are negative at 48 hrs PN 2(Mike): Influenza A Pneumonia RISKS: H&P 2: Hx mitral valve prolapse, Landon's palsy. TREATMENT: ID Consult Order 06/15: IV Rocephin Order 2: NS IV 125 mls/hr Order 2: Vibramycin po BID Thank you, Miroslava (This form is maintained as a part of the permanent medical record) 2015 [employer]. All Rights Reserved Miroslava Bynum RN, BSN [email or web address] Office: [phone] [facility]
[2018-06-18] MEDS: Mometasone/Formoterol 120 PUFF INHALER INH SCH (18:28)
[2018-06-18] MEDS: Doxycycline 100 MG CAP PO SCH (20:11)
[2018-06-18] MEDS: Docusate 100 MG CAP PO SCH (20:12)
[2018-06-19] MEDS: cefTRIAXone\\ROCEPHIN 2 GM in Sodium Chloride 0.9% 100 ML IVPB SCH (02:59)
[2018-06-19 03:56] VITALS: TEMP 97.8
[2018-06-19 05:19] LABS: Anion Gap 10 mmol/L (10-20); BUN (Urea Nitrogen) 8 mg/dL (9.8-20.1); Calc. Creatinine Clearance 127 mL/min (70-130); Calcium 8.1 mg/dL (7.8-10.44); Carbon Dioxide 22 mmol/L (22-29); Chloride 112 mmol/L (98-107); Estimated GFR-MDRD Greater than 90; Glucose 88 mg/dL (70-105); Potassium 3.7 mmol/L (3.5-5.1); Sodium 140 mmol/L (136-145)
[2018-06-19] MEDS: Sodium Chloride 0.9% 1,000 ML IV SCH (05:52)
--- NOTE | 2018-06-19 08:46 | PDOC.CTH ---
Cardiology Progress Note - Subjective Doing much better this morning. No more runs of afib. - Objective Vital Signs Temp Pulse Ox 06/19/18 07:44 98 06/19/18 03:55 97.8 F 93 L Weight 177 lb 12.8 oz 06/18/18 06/19/18 06/20/18 06:59 06:59 06:59 Intake Total 4772.5 3575 Output Total 2200 2250 Balance 2572.5 1325 - Physical Examination General/Neuro: alert & oriented x3, NAD Neck: no JVD present Lungs: CTA, unlabored respirations Heart: RRR Abdomen: NT/ND Extremities: + edema B (trace) - Telemetry Telemetry Rhythm: NSR - Labs Result Diagrams: 06/18/18 04:29 06/19/18 04:24 Troponin/CKMB Troponin I Less than 0.010 ng/mL (< 0.028) 06/16/18 14:52 - Assessment/Plan 1. Influenza 2. Possible pneumonia 3. Chest pain. 4. Paroxysmal afib 5. Hypokalemia PLAN: - Overall improved. - No active cardiac issue at this time - Will plan on seeing in office in 1 month for risk stratification and discussion on anticoagulation - Will start baby aspirin in 3 days as long as she is not seeing any more nose bleeding or coughing up blood. - May discharge home any time from cardiac perspective. - Will sign off. Please call with any questions.
--- NOTE | 2018-06-19 08:48 | PRG ---
DATE OF SERVICE: 06/19/2018 SUBJECTIVE: Mateo Morejon this morning is awake, alert, responsive, better, less headache, less shortness of breath, less cough. OBJECTIVE: VITAL SIGNS: Temperature is normal. Sats are 90% on room air, pulse 71, blood pressure 114/72, respiratory rate 18. CHEST: Reveal occasional rhonchi, but no wheezing or crackles. CARDIAC: S1 and S2. No gallops. ABDOMEN: No masses. LABORATORY DATA: Lytes are normal. IMPRESSION: 1. Febrile illness, viral syndrome, influenza A. 2. Right upper lung pneumonia. 3. Supraventricular tachycardia. 4. Influenza A. PLAN: She will be discharged home on doxycycline 100 mg twice a day for a week, Symbicort inhaler as needed. CBC in the office in several weeks. Job ID: [id number]
--- NOTE | 2018-06-19 08:57 | EKG ---
Test Reason : Blood Pressure : / mmHG Vent. Rate : 104 BPM Atrial Rate : 088 BPM P-R Int : 000 ms QRS Dur : 084 ms QT Int : 362 ms P-R-T Axes : 000 024 033 degrees QTc Int : 476 ms Atrial fibrillation with rapid ventricular response Low voltage QRS Abnormal ECG When compared with ECG of 16-JUN-2018 11:38, Atrial fibrillation has replaced Sinus rhythm Vent. rate has increased BY [address] Brenda VEGA ([id number]) on 06/19/2018 8:56:45 AM Referred By: ARACELI Confirmed By:DR. Brenda VEGA
[2018-06-19] MEDS ORDERED: Aspirin Chewable 81 MG TAB PO SCH (09:00)
[2018-06-19] MEDS ORDERED: Enoxaparin Sodium 40 MG/0.4 ML SYRINGE SC SCH (09:00)
[2018-06-19] MEDS: Oseltamivir 75 MG CAP PO SCH (09:35)
[2018-06-19] MEDS: Doxycycline 100 MG CAP PO SCH (09:35)
[2018-06-19] MEDS: Naproxen 500 MG TAB PO SCH (09:36)
[2018-06-19] MEDS: Docusate 100 MG CAP PO SCH (09:36)
[2018-06-19 11:13] VITALS: BP 139/77
[2018-06-19] MEDS: Mometasone/Formoterol 120 PUFF INHALER INH SCH (11:29)
--- NOTE | 2018-06-20 01:42 | DIS ---
DATE OF ADMISSION: 06/15/2018 DATE OF DISCHARGE: 06/19/2018 CONSULTANTS: 1. Dr. Persaud of Cardiology. 2. Dr. Mcadams of Infectious Disease. 3. Dr. Tenorio of Pulmonology. MEDICATIONS: Medications are reconciled at discharge, Continued medication: Pantoprazole 40 mg one p.o. daily. New medications; 1. Symbicort 160/4.5 one inhalation b.i.d. for 7 days and then as needed. Prescription provided by Dr. Tenorio. 2. Aspirin 81 mg daily. 3. Doxycycline 100 mg p.o. b.i.d. for 7 days. Prescription provided by Dr. Tenorio. 4. Tamiflu 75 mg p.o. b.i.d. for 3 doses and dispensed 3. Prescription provided by [facility]. 5. Robitussin AC 10 mL p.o. q.6 hours p.r.n. for cough, dispense 200 mL, no refills. Prescription provided by [facility]. FINAL DIAGNOSES: 1. Influenza A. 2. Pneumonia and sepsis secondary to above. 3. Paroxysmal atrial fibrillation. 4. Hyponatremia, resolved. 5. Slightly low TSH. HISTORY OF PRESENT ILLNESS: Ms. Morejon is a 58-year-old female who presented to the emergency room, complaining of headache, photophobia, low blood pressures, nausea, and vomiting. Please see history and physical for more details. HOSPITAL COURSE: In the emergency room, the patient underwent a lumbar puncture secondary to concern for encephalitis or meningitis. She was covered with broad-spectrum antibiotics. Dr. Mcadams was consulted, and a flu test was performed and positive. She was also seen by Pulmonology, diagnosed with pneumonia and was started on Rocephin and doxycycline for this. During this hospitalizatio, the patient was also initially on acyclovir and vancomycin due to concern of encephalitis. However, these were discontinued as her clinical and lab findings were not consistent with it. During the hospitalization, she developed chest pain and Cardiology was consulted. An echocardiogram was performed, which showed a normal ejection fraction, moderate tricuspid regurgitation, and dilation of the IVC. The plan is for risk stratification as an outpatient. Also during this hospitalization, the patient had a brief episode of atrial fibrillation and was started on amiodarone drip. However, this was discontinued a few hours later as she returned to sinus rhythm. Because of hemoptysis and nosebleed in the hospital, the patient was continued only on low-dose aspirin as well as DVT prophylaxis with enoxaparin. Full anticoagulation was held. She will be discharged to continue low dose aspirin and follow up with Cardiology. There is one incidental finding of a low TSH - recommend repeating as an outpatient along with chest xray in a month to ensure resolution of the pneumonia. On day of discharge, the patient is overall feeling well and does meet criteria for discharge to home. PHYSICAL EXAMINATION: VITAL SIGNS: Blood pressure 114/72, pulse 86, respirations 22 to 25, sats 98% on room air. GENERAL: Awake, alert, responsive, in no apparent distress. Able to speak in full sentences. LUNGS: Clear to auscultation bilateral. No audible wheezing, rhonchi, or rales. HEART: Normal S1 and S2. Regular rate and rhythm. No audible murmurs. ABDOMEN: Soft, present bowel sounds. Nontender. Nondistended. PSYCHIATRIC: Euthymic. Answers questions appropriately. Linear, logical, goal-directed thought process. MCKEE FINDINGS AND TEST RESULTS: CBC; 11.2, 11.6, 35.6, 169. Chemistry; 140, 3.7, 112, 22, 8, 0.63, 88. Total protein 5.3, albumin 2.9. Troponin, negative x3. TSH 0.1464. Urinalysis showed present glucose, ketones, 4 to 6 white blood cells. CSF showed 2100 red blood cells in tube 4 and 19 in tube 1, glucose 73, protein 21, one white blood cell in tube 1. Toxicology negative for salicylates, acetaminophen, and alcohol. Blood cultures are negative. Flu test positive for influenza type A. Urine culture negative. Echocardiogram as noted above. Chest x-ray, on June 18, shows new parenchymal changes, right mid lung zone , worrisome for developing pneumonia. Abdominal ultrasound, on June 16, no evidence of gallstones or biliary obstruction and small right pleural fluid. Brain CT, on June 15, negative. Chest x-ray, on June 15, area of pneumonia versus artifact in the left lung base. DIET: Regular. ACTIVITY: As tolerated. Reviewed with the patient this hospitalization, the importance of followup, and seek care precautions. She demonstrates understanding. CODE STATUS: Full. FOLLOWUP: 1. Follow up is with Dr. Persaud in 1 month. The patient is to contact his office to schedule. 2. Follow up with Dr. Tenorio of Pulmonology in a few weeks. The patient is to call his office to schedule. 3. Follow up with the primary care provider, Dr. Simmons, within a week to re-evaluate this hospitalization, check her overall health and to arrange follow up with TSH when the patient is well as well as follow up chest x-ray to ensure that the pneumonia has cleared. DISCHARGE DISPOSITION: Home TIME SPENT: Total time coordinating discharge is 45 minutes. Job ID: [id number] MTDD
== END 2018-06-19 11:36 | disposition home or self-care (01) | DRG 871 ==
LOC: ERS 17:25 → IMCU/EMU 20:40
PROVIDERS: ADMIT Hospitalist; ATTEND Hospitalist
PROC: 009U3ZX Drainage of Spinal Canal, Percutaneous Approach, Diagnostic (ICD-10-PCS; principal; 2018-06-15)
DX: A41.9 Sepsis, unspecified organism (principal); J09.X1 Influenza due to identified novel influenza A virus with pneumonia; G93.40 Encephalopathy, unspecified; E87.1 Hypo-osmolality and hyponatremia; I47.1 Supraventricular tachycardia; R73.9 Hyperglycemia, unspecified; I34.1 Nonrheumatic mitral (valve) prolapse; I95.9 Hypotension, unspecified; I48.0 Paroxysmal atrial fibrillation; E87.6 Hypokalemia; K44.9 Diaphragmatic hernia without obstruction or gangrene; K21.0 Gastro-esophageal reflux disease with esophagitis
CPT/HCPCS: 36415; 62270; 70450; 71045; 76700; 80048; 80053; 80307; 80400; 81001; 82140; 82550; 82945; 83605; 83690; 84157; 84439; 84443; 84484; 85025; 87040; 87086; 87804; 89051; 93005; 93010; 93306; 96361; 96365; 96367; 96375; J0133; J0282; J0696; J0834; J1100; J1650; J1956; J2001; J2060; J2405; J2543; J3370; J7050; J7070; Q0162

== ENCOUNTER 2021-10-25 07:54 | Inpatient (IN) | payer BC ==
[2021-10-25 08:19] LABS: #Eosinphils 0.1 thou/uL (0.0-0.7); #Lymphocytes 1.4 thou/uL (1.20-3.40); #Monocytes 0.5 thou/uL (0.11-0.59); #Neutrophils 7.4 thou/uL (1.40-6.50); %Basophils 0.3 % (0.0-1.0); %Eosinophils 1.2 % (0.0-10.0); %Lymphocytes 14.5 % (21.0-51.0); %Monocytes 5.8 % (0.0-10.0); %Neutrophils 78.2 % (42.0-75.0); Hemoglobin 14.5 g/dL (12.0-16.0); Mean Corpuscular HGB CONC 32.1 g/dL (32.0-36.0); Mean Corpuscular Hemoglobin 32.1 pg (27.0-31.0); Mean Platelet Volume 7.1 fL (7.4-10.4); Platelet Count 271 thou/uL (130-400); RBC Distribution Width 12.1 % (11.5-14.5); Red Blood Cell (RBC) Count 4.51 mill/uL (4.20-5.40); White Blood Cell (WBC) Count 9.4 thou/uL (4.8-10.8)
[2021-10-25 08:33] LABS: PTT 28.1 sec (22.9-36.1); Prothrombin Time 12.9 sec (12.0-14.7)
[2021-10-25 08:35] LABS: ALT (SGPT) 14 U/L (8-55); AST (SGOT) 27 U/L (5-34); Albumin 3.8 g/dL (3.5-5.0); Alkaline Phosphatase 77 U/L (40-110); Anion Gap 12 mmol/L (10-20); BUN (Urea Nitrogen) 16 mg/dL (9.8-20.1); Bilirubin, Total 0.5 mg/dL (0.2-1.2); Calc. Creatinine Clearance 0 mL/min (70-130); Calcium 9.2 mg/dL (7.8-10.44); Carbon Dioxide 25 mmol/L (22-29); Chloride 107 mmol/L (98-107); Globulin 3.3 g/dL (2.4-3.5); Glucose 92 mg/dL (70-105); Lipase 28 U/L (8-78); Potassium 5.1 mmol/L (3.5-5.1); Protein, Total 7.1 g/dL (6.0-8.3); Sodium 139 mmol/L (136-145)
[2021-10-25] MEDS ORDERED: Acetaminophen 325 MG TAB ONE (09:43)
[2021-10-25] MEDS ORDERED: hydrALAZINE 20 MG/ML VIAL SLOW IVP PRN (10:49)
[2021-10-25] MEDS ORDERED: HumaLOG 300 UNITS/3 ML VIAL SC PRN (10:49)
[2021-10-25] MEDS ORDERED: Labetalol HCl 100 MG/20 ML VIAL SLOW IVP PRN (10:49)
[2021-10-25] MEDS ORDERED: Ondansetron PF 4 MG/2 ML Vial IVP PRN (10:49)
[2021-10-25] MEDS ORDERED: Communication Order-Pharmacy FS ONE (10:49)
[2021-10-25] MEDS ORDERED: niCARdipine 25 MG in Sodium Chloride 0.9% 250 ML 250 ML IVPB PRN (10:49)
[2021-10-25] MEDS ORDERED: ISOVUE-370 76%-LOCM 1 ML ONE (11:57)
[2021-10-25] MEDS: Acetaminophen 325 MG TAB PO PRN ×3 (13:17→22:43)
[2021-10-25] MEDS: ALPRAZolam 0.25 MG TAB PO PRN ×2 (13:58→20:33)
[2021-10-25] MEDS: Atorvastatin Calcium 40 MG TAB PO SCH (20:33)
[2021-10-25] MEDS ORDERED: Sodium Chloride 0.9% 500 ML IV SCH (23:45)
[2021-10-26] MEDS: Acetaminophen 325 MG TAB PO PRN ×2 (03:48→07:31)
[2021-10-26] MEDS: ALPRAZolam 0.25 MG TAB PO PRN ×2 (03:55→21:22)
[2021-10-26 04:13] LABS: #Eosinphils 0.2 thou/uL (0.0-0.7); #Lymphocytes 1.9 thou/uL (1.20-3.40); #Monocytes 0.7 thou/uL (0.11-0.59); %Basophils 0.4 % (0.0-1.0); %Eosinophils 1.7 % (0.0-10.0); %Lymphocytes 19.4 % (21.0-51.0); %Monocytes 7.5 % (0.0-10.0); Hemoglobin 13.6 g/dL (12.0-16.0); Mean Corpuscular HGB CONC 33.1 g/dL (32.0-36.0); Mean Corpuscular Hemoglobin 33.2 pg (27.0-31.0); Mean Platelet Volume 7.1 fL (7.4-10.4); Platelet Count 256 thou/uL (130-400); RBC Distribution Width 12.2 % (11.5-14.5); Red Blood Cell (RBC) Count 4.11 mill/uL (4.20-5.40); White Blood Cell (WBC) Count 9.8 thou/uL (4.8-10.8)
[2021-10-26 04:38] LABS: Anion Gap 12 mmol/L (10-20); BUN (Urea Nitrogen) 13 mg/dL (9.8-20.1); Calc. Creatinine Clearance 80 mL/min (70-130); Calcium 8.9 mg/dL (7.8-10.44); Carbon Dioxide 22 mmol/L (22-29); Cardiac Risk 3.9 (Less than 4.5); Chloride 110 mmol/L (98-107); Cholesterol 257 mg/dl (< 200 Desired); Glucose 96 mg/dL (70-105); HDL Cholesterol 66 mg/dL (>60 Neg Risk); LDL Cholesterol, Calculated 171 mg/dL; Potassium 4.2 mmol/L (3.5-5.1); Sodium 140 mmol/L (136-145); Triglycerides 100 mg/dL (Less than 150)
[2021-10-26] MEDS ORDERED: Fentanyl 100 MCG/2 ML VIAL SLOW IVP PRN (09:07)
[2021-10-26] MEDS ORDERED: Fentanyl 100 MCG/2 ML VIAL ONE (09:15)
[2021-10-26] MEDS: Aspirin 325 mg Enteric Coated Tablet PO SCH (09:26)
[2021-10-26] MEDS: HYDROcodone/Acetaminophen 10/325 mg Tablet PO PRN ×2 (11:10→16:39)
[2021-10-26] MEDS: Atorvastatin Calcium 40 MG TAB PO SCH (21:22)
[2021-10-26 21:43] VITALS: BMI 28.7
[2021-10-27] MEDS: Aspirin 325 mg Enteric Coated Tablet PO SCH (10:08)
[2021-10-27] MEDS: HYDROcodone/Acetaminophen 10/325 mg Tablet PO PRN (10:10)
[2021-10-27] MEDS ORDERED: Polyethylene Glycol 3350 17 GM Packet PO PRN (12:10)
[2021-10-27] MEDS ORDERED: Polyethylene Glycol 3350 17 GM Packet PO SCH (12:15)
[2021-10-27 15:27] VITALS: BP 100/69; TEMP 98.5
[2021-10-28] MEDS ORDERED: Polyethylene Glycol 3350 17 GM Packet PO SCH (09:00)
[2021-10-28] MEDS ORDERED: Apixaban 5 MG TAB PO SCH (09:00)
== END 2021-10-27 17:08 | disposition home health service (06) | DRG 62 ==
LOC: ERS 07:54 → CCU 10:55 → NEURO 10-26 14:31
PROVIDERS: ADMIT Internal Medicine; ATTEND Hospitalist
DX: I63.9 Cerebral infarction, unspecified (principal); G81.91 Hemiplegia, unspecified affecting right dominant side; G43.409 Hemiplegic migraine, not intractable, without status migrainosus; I34.1 Nonrheumatic mitral (valve) prolapse; I48.91 Unspecified atrial fibrillation; G51.0 Bell's palsy; M06.9 Rheumatoid arthritis, unspecified; F41.8 Other specified anxiety disorders; R29.712 NIHSS score 12; R47.1 Dysarthria and anarthria; R47.01 Aphasia; Z79.01 Long term (current) use of anticoagulants; Z79.82 Long term (current) use of aspirin; Z98.890 Other specified postprocedural states; Z90.710 Acquired absence of both cervix and uterus; Z82.49 Family history of ischemic heart disease and other diseases of the circulatory system
CPT/HCPCS: 36415; 36416; 37195; 70450; 70496; 70498; 70551; 71045; 80048; 80053; 80061; 82607; 82746; 83690; 84484; 85025; 85610; 85730; 93005; 94760; 95712; 95819; 95957; J2405; J3010; J7030; Q9966

== ENCOUNTER 2021-11-20 13:19 | Outpatient (CLI) | payer BC | END 2021-11-20 13:20 | disposition home or self-care (01) | LOC: BICMAMMO 13:19 | PROVIDERS: ATTEND Specialist | DX: Z12.31 Encounter for screening mammogram for malignant neoplasm of breast (principal); Z98.82 Breast implant status | CPT/HCPCS: 77063; 77067 ==